=== PATIENT | male | born 1945 | race Caucasian/White ===

== ENCOUNTER 2019-01-15 08:05 | Observation (INO) | payer MEDICARE, BC ==
[~2019-01-15] VITALS: Ht 175.3 cm; Wt 100.0 kg
[2019-01-15 08:37] VITALS: BP 135/78
[2019-01-15] MEDS ORDERED: APIX5TAB PO (08:46)
[2019-01-15] MEDS ORDERED: MULT-658 PO (08:46)
[2019-01-15] MEDS ORDERED: ASPI81TA45 PO (08:46)
[2019-01-15] MEDS ORDERED: CHOL10003 PO (08:46)
[2019-01-15] MEDS ORDERED: ROSU10TA2 PO (08:46)
[2019-01-15] MEDS ORDERED: AMIO200T42 PO (08:46)
[2019-01-15] MEDS ORDERED: GLUC500T11 PO (08:46)
[2019-01-15] MEDS ORDERED: METO50TA82 PO (08:46)
[2019-01-15] MEDS ORDERED: ZOLP-413 PO (08:46)
[2019-01-15] MEDS ORDERED: ESOM40CA PO (08:46)
[2019-01-15] MEDS ORDERED: MELA1TAB15 PO (08:47)
[2019-01-15] MEDS ORDERED: FENTANYL PF 250 MCG/5ML ONE (10:06)
[2019-01-15] MEDS ORDERED: MIDAZOLAM 1 MG/ML, 2ML ONE (10:06)
[2019-01-15] MEDS ORDERED: FENTANYL PF 100 MCG/2ML ONE (10:32)
[2019-01-15] MEDS ORDERED: SODIUM CHLORIDE 0.9% 1,000 ML IV SCH (11:00)
[2019-01-15] MEDS ORDERED: LIDOCAINE 1%, 20ML ONE (11:51)
[2019-01-15] MEDS ORDERED: PROTAMINE SULFATE 10 MG/ML, 5ML ONE (13:08)
[2019-01-15] MEDS ORDERED: ACETAMINOPHEN 325 MG TABLET PO PRN (14:00)
[2019-01-15] MEDS ORDERED: PHENYLEPHRINE 10 MG/ML ONE (14:44)
[2019-01-15] MEDS ORDERED: ROCURONIUM 10MG/ML,5ML ONE (14:44)
[2019-01-15] MEDS ORDERED: GLYCOPYRROLATE 0.2MG/1ML, 5ML ONE (14:44)
[2019-01-15] MEDS ORDERED: NEOSTIGMINE 1 MG/ML, 10ML ONE (14:44)
[2019-01-15] MEDS ORDERED: PROPOFOL 10 MG/ML, 20ML ONE (14:44)
[2019-01-15 15:06] VITALS: BP 126/74
[2019-01-15 19:45] VITALS: BP 137/84
[2019-01-15] MEDS ORDERED: APIXABAN 5 MG TABLET ONE (21:09)
[2019-01-15] MEDS ORDERED: METOPROLOL TARTRATE 50 MG TABLET ONE (21:16)
[2019-01-15] MEDS ORDERED: ATORVASTATIN 20 MG TABLET ONE (21:16)
[2019-01-15] MEDS: APIXABAN 5 MG TABLET PO SCH (21:23)
[2019-01-15] MEDS: METOPROLOL TARTRATE 50 MG TABLET PO SCH (21:23)
[2019-01-15] MEDS ORDERED: SIMVASTATIN 20 MG TABLET PO SCH (21:30)
[2019-01-16 01:00] VITALS: BP 135/77
[2019-01-16] MEDS: METOPROLOL TARTRATE 50 MG TABLET PO SCH (05:49)
[2019-01-16 08:13] VITALS: BP 153/84
[2019-01-16] MEDS: APIXABAN 5 MG TABLET PO SCH (08:59)
[2019-01-16] MEDS ORDERED: CHOLECALCIFEROL 1,000 UNIT TABLET PO SCH (09:00)
[2019-01-16] MEDS ORDERED: AMIODARONE 200 MG TABLET PO SCH (09:00)
[2019-01-16] MEDS ORDERED: ASPIRIN 81 MG TABLET CHEW PO SCH (09:00)
== END 2019-01-16 13:24 | disposition home or self-care (01) ==
LOC: CACL 08:05 → ORIP 13:43 → 5SO 15:00 → DCLOUNGE 01-16 13:20
PROVIDERS: ADMIT Internal Medicine Cardiovascular Disease; ATTEND Internal Medicine Cardiovascular Disease
DX: I48.91 Unspecified atrial fibrillation (principal); I48.92 Unspecified atrial flutter
CPT/HCPCS: 85347; 93306; 93613; 93655; 93656; 93662; C1730; C1732; C1759; C1766; C1893; C1894; G0378; J2250; J2370; J2704; J2710; J2720; J3010; J3490

== ENCOUNTER 2019-04-01 11:12 | Day surgery (SDC) | payer MEDICARE, BC ==
[~2019-04-01] VITALS: Ht 175.3 cm; Wt 100.0 kg
[~2019-04-01 11:12] MED LIST: AMIO200T42 PO; APIX5TAB PO; ASPI81TA45 PO; CHOL10003 PO; ESOM40CA PO; GLUC500T11 PO; MELA1TAB15 PO; METO50TA82 PO; MULT-658 PO; ROSU10TA2 PO; ZOLP-413 PO
[2019-04-01 11:41] VITALS: BP 171/91
[2019-04-01] MEDS ORDERED: ALPR0.254 PO (11:53)
[2019-04-01 11:59] LABS: ANION GAP 7 mmol/L (5-15); CALCIUM 8.8 mg/dL (8.5-10.1); CHLORIDE 110 mmol/L (98-107)
[2019-04-01] MEDS ORDERED: SODIUM CHLORIDE 0.9% 1,000 ML IV ONE (12:00)
[2019-04-01 12:04] LABS: CREATININE 1.08 mg/dL (0.7-1.3)
[2019-04-01] MEDS ORDERED: PROPOFOL 10 MG/ML, 20ML ONE (12:47)
== END 2019-04-01 14:10 | disposition home or self-care (01) ==
LOC: CACL 11:12
PROVIDERS: ATTEND Internal Medicine Cardiovascular Disease
DX: I48.0 Paroxysmal atrial fibrillation (principal); I08.3 Combined rheumatic disorders of mitral, aortic and tricuspid valves; I10 Essential (primary) hypertension; J44.9 Chronic obstructive pulmonary disease, unspecified; Z79.01 Long term (current) use of anticoagulants; Z79.899 Other long term (current) drug therapy; Z87.891 Personal history of nicotine dependence; Z88.2 Allergy status to sulfonamides; Z98.890 Other specified postprocedural states
CPT/HCPCS: 36415; 80048; 92960; 93312; 93325; J2704